=== PATIENT | female | born 1955 | race Caucasian/White ===

== ENCOUNTER 2018-03-31 09:27 | Emergency (ER) | payer MEDICAID ==
[~2018-03-31] VITALS: Ht 152.4 cm; Wt 64.0 kg
[2018-03-31] MEDS ORDERED: LIDOCAINE HCL/PF 1% 10 MG/ML 5ML VIAL IJ ONE (12:00)
[2018-03-31] MEDS ORDERED: BACITRACIN ZINC OINT UDPKT TOP ONE (12:00)
[2018-03-31 13:36] VITALS: BP 157/66
== END 2018-03-31 13:41 | disposition home or self-care (01) ==
LOC: ER 09:27
DX: S61.012A Laceration without foreign body of left thumb without damage to nail, initial encounter (principal); E11.9 Type 2 diabetes mellitus without complications; E78.00 Pure hypercholesterolemia, unspecified; I10 Essential (primary) hypertension; W45.8XXA Other foreign body or object entering through skin, initial encounter; Y93.89 Activity, other specified; Y92.89 Other specified places as the place of occurrence of the external cause; Y99.8 Other external cause status; Z90.49 Acquired absence of other specified parts of digestive tract; Z90.710 Acquired absence of both cervix and uterus; Z88.0 Allergy status to penicillin
CPT/HCPCS: 12002; 73140; 99284; X7700; Z7610